=== PATIENT | male | born 2000 | race Caucasian/White ===

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

== ENCOUNTER 2021-07-01 13:49 | Emergency (ER) | payer OTHER ==
[~2021-07-01] VITALS: Ht 180.3 cm; Wt 98.0 kg
[2021-07-01 14:02] VITALS: BP 132/83
--- NOTE | 2021-07-01 14:28 | NUR ---
Pt ambulated to bed 05.
--- NOTE | 2021-07-01 14:38 | NUR ---
Patient being evaluated by JUDIT Wheat at bedside.
--- NOTE | 2021-07-01 14:45 | NUR ---
21/M c/o right inner buttock pain x3 days. Currently rates pain a 9 of 10 in severity. Pain is worse when sitting. Patient reports taking ibuprofen last night with minimal relief. No previous episodes.
[2021-07-01] MEDS ORDERED: CEPH-588 PO (14:47)
[2021-07-01] MEDS ORDERED: NAPR-54 PO (14:47)
[2021-07-01] MEDS ORDERED: KETOROLAC 30 MG/ML VIAL IM ONE (14:50)
[2021-07-01 15:03] VITALS: BP 132/83
--- NOTE | 2021-07-01 15:03 | NUR ---
Patient discharged with v/s stable. Written and verbal after care instructions given and explained. Patient alert, oriented and verbalized understanding of instructions. Ambulatory with steady gait. All questions addressed prior to discharge. ID band removed. Patient advised to follow up with PMD. Rx of Cephalexin and Naproxen given. Patient educated on indication of medication including possible reaction and side effects. Opportunity to ask questions provided and answered.
== END 2021-07-01 15:03 | disposition home or self-care (01) ==
LOC: MED 13:49
DX: L02.31 Cutaneous abscess of buttock (principal); Z79.899 Other long term (current) drug therapy
CPT/HCPCS: 96372; 99283; J1885

== ENCOUNTER 2021-07-03 15:02 | Emergency (ER) | payer OTHER ==
[~2021-07-03] VITALS: Ht 177.8 cm; Wt 98.0 kg
[~2021-07-03 15:02] MED LIST: CEPH-588 PO; NAPR-54 PO
[2021-07-03 15:15] VITALS: BP 124/58
--- NOTE | 2021-07-03 15:49 | NUR ---
Pt ambulated to bed 09 with steady/even gait.
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
--- NOTE | 2021-07-03 15:50 | NUR ---
No nursing interventions performed.
== END 2021-07-03 15:53 | disposition home or self-care (01) ==
LOC: MED 15:02
DX: L02.31 Cutaneous abscess of buttock (principal); Z79.899 Other long term (current) drug therapy
CPT/HCPCS: 99282